=== PATIENT | female | born 1955 | race Caucasian/White ===

== ENCOUNTER 2017-06-02 08:37 | Emergency (ER) | payer BC ==
--- NOTE | 2017-06-02 09:48 | UC ---
Respiratory Complaint HPI - HPI Summary HPI Summary: 62 yo female with cough x q 1 week productive about 2-3 day hx of left sided cp with cough sob this am no f/c no n/v she has a PATEL - History of Current Complaint Chief Complaint: UCRespiratory Stated Complaint: URI Time Seen by Provider: 06/02/17 09:12 Hx Obtained From: Patient Onset/Duration: Gradual Onset, Lasting Days Timing: Constant Severity Initially: Moderate Severity Currently: Moderate Pain Intensity: 4 Pain Scale Used: 0-10 Numeric Character: Cough: Productive Aggravating Factors: Deep Breaths Alleviating Factors: Nothing Associated Signs And Symptoms: Positive: Dyspnea - this AM - Allergies/Home Medications Allergies/Adverse Reactions: Allergies Allergy/AdvReac Type Severity Reaction Status Date / Time Ciprofloxacin [From Cipro] Allergy Swelling Verified 06/02/17 08:56 Of Face,Lips,& Throat Codeine Allergy Nausea Verified 06/02/17 08:56 Home Medications: Home Medications Herbs 1 dose PO DAILY 06/02/17 [History Confirmed 06/02/17] PMH/Surg Hx/FS Hx/Imm Hx Previously Healthy: Yes - Surgical History Surgical History: Yes Surgery Procedure, Year, and Place: 2 csections, GB, hiatal hernia repair, carpal tunnel bilateral, LASIK RIGHT EYE 2000 - Family History Known Family History: Positive: Hypertension - Social History Alcohol Use: None Substance Use Type: None Smoking Status (MU): Never Smoked Tobacco Have You Smoked in the Last Year: No Review of Systems Constitutional: Negative Skin: Negative Eyes: Negative ENT: Negative Respiratory: Shortness Of Breath, Cough Cardiovascular: Chest Pain Gastrointestinal: Negative Genitourinary: Negative Motor: Negative Neurovascular: Negative Musculoskeletal: Negative Neurological: Negative Psychological: Negative Is Patient Immunocompromised?: No All Other Systems Reviewed And Are Negative: Yes Physical Exam Triage Information Reviewed: Yes Appearance: Well-Appearing, No Pain Distress, Well-Nourished Vital Signs: Initial Vital Signs Temp 98.8 F 06/02/17 08:53 Pulse 76 06/02/17 08:53 Resp 14 06/02/17 08:53 BP 157/89 06/02/17 08:53 Pulse Ox 96 06/02/17 08:53 Eyes: Positive: Conjunctiva Clear ENT: Positive: Uvula midline. Negative: Nasal congestion, Nasal drainage, Trismus, Muffled voice, Hoarse voice Neck: Positive: Supple, Nontender Respiratory: Positive: Chest non-tender, Crackles, Wheezing Cardiovascular: Positive: RRR, No Murmur Abdominal Exam: Normal Bowel Sounds: Positive: Present Musculoskeletal: Positive: ROM Intact, No Edema Neurological: Positive: Alert Psychological Exam: Normal Skin Exam: Normal UC Diagnostic Evaluation - Laboratory O2 Sat by Pulse Oximetry: 96 - normal/not hypoxic - Radiology Xray Interpretation: No Acute Changes Radiology Interpretation Completed By: Radiologist Re-Evaluation - Re-Evaluation First Eval Re-Evaluation Time: 10:45 Change: Improved - clear lungs Respiratory Course/Dx - Differential Dx/Diagnosis Provider Diagnoses: acute bronchitis with bronchospasm Discharge - Discharge Plan Condition: Stable Disposition: HOME Prescriptions: Amoxicillin PO (*) [Amoxicillin 875 MG (*)] 875 mg PO BID #14 tab Patient Education Materials: Acute Bronchitis (ED), Bronchospasm (ED) Referrals: Caron Dumont NP [Primary Care Provider] - 4 Days (if not better) Additional Instructions: return for new or worsening symptoms your BP should be rechecked in a few weeks a little high...possibly due to your illness use inhaler as directed
[2017-06-02] MEDS ORDERED: Ipratropium 0.5MG/2.5ML NEB* 0.5 MG/2.5 ML NEB.SOLN INH ONE (09:52)
[2017-06-02] MEDS ORDERED: Albuterol 2.5 MG/3 ML NEB.SOL* (0.083%) INH ONE (09:52)
--- NOTE | 2017-06-02 09:58 | RAD ---
INDICATION: Cough and wheezing COMPARISON: Chest x-ray dated December 17, 2015 TECHNIQUE: PA and lateral views of the chest were obtained. FINDINGS: The heart and mediastinum are normal in size and contour. The lungs are grossly clear. There is no evidence of large pleural effusion. Visualized bones are normal for the patient's age. There is no radiographic evidence of free air beneath the diaphragm IMPRESSION: No radiographic evidence of acute cardiopulmonary disease.
[2017-06-02] MEDS ORDERED: Albuterol HFA INHALER* 8 gm MDI INH ONE (10:43)
[2017-06-02 10:54] VITALS: BP 142/84
== END 2017-06-02 11:00 | disposition home or self-care (01) ==
LOC: UCEAST 08:37
DX: J20.9 Acute bronchitis, unspecified (principal); Z88.1 Allergy status to other antibiotic agents; Z88.5 Allergy status to narcotic agent
CPT/HCPCS: 71020; 99212; A9270-GY; G0463; J7644